=== PATIENT | female | born 1995 | race Caucasian/White ===

== ENCOUNTER 2021-10-03 11:19 | Emergency (ER) | payer OTHER, MEDICAID ==
[2021-10-03 13:05] LABS: HEMOGLOBIN 13.7 gm/dl (12.3-15.3); RED BLOOD COUNT 4.87 M/UL (4.00-5.10); WHITE BLOOD COUNT 13.2 K/UL (4.5-11.0)
[2021-10-03 13:48] LABS: BUN/CREATININE RATIO 28 (0-10)
== END 2021-10-03 15:30 | disposition home or self-care (01) ==
LOC: ER1 11:19
PROVIDERS: Physician Assistant
DX: F41.9 Anxiety disorder, unspecified (principal); I10 Essential (primary) hypertension; Z20.822 Contact with and (suspected) exposure to COVID-19
CPT/HCPCS: 71045; 80053; 82550; 82553; 84484; 84703; 85025; 85379; 93005; 99283; U0002